=== PATIENT | male | born 1930 | race Asian ===

== ENCOUNTER 2020-07-03 14:26 | Emergency (ER) | payer OTHER ==
[~2020-07-03 14:26] MED LIST: ATORVASTATIN CA80 M1 PO; AVAPRO300 MG PO; CHLORTHALIDONE25 MG PO; COR3 PO; COREG25 M1 PO; ELIQUIS5 M1 PO; FORTAMET500 M1 PO; JANUVIA100 M1 PO; K-TAB10 MEQ PO; KLOR-CON M2020 MEQ PO; L20 PO; L40 PO; LASIX20 MG PO; ZES5 PO; ZYL100 PO; ZYLOPRIM100 MG PO
== END 2020-07-03 17:41 | disposition home or self-care (01) ==
LOC: ED 14:26
DX: S09.90XA Unspecified injury of head, initial encounter (principal); S00.31XA Abrasion of nose, initial encounter; R04.0 Epistaxis; I10 Essential (primary) hypertension; E11.9 Type 2 diabetes mellitus without complications; Z95.0 Presence of cardiac pacemaker; W22.8XXA Striking against or struck by other objects, initial encounter; Y93.89 Activity, other specified; Y92.89 Other specified places as the place of occurrence of the external cause; Y99.8 Other external cause status